=== PATIENT | female | born 1970 ===

== ENCOUNTER 2020-10-26 05:45 | Day surgery (SDC) | payer OTHER ==
[~2020-10-26 05:45] MED LIST: SYNTHROID112 MCG PO; ZIAC 2.5-6.251 EACH PO
[2020-10-26] MEDS ORDERED: IBU800 MG PO (08:22)
== END 2020-10-26 13:15 | disposition home or self-care (01) ==
LOC: CIR.AMB 05:45
PROVIDERS: ATTEND Obstetrics & Gynecology Gynecology
DX: N84.0 Polyp of corpus uteri (principal); Z20.822 Contact with and (suspected) exposure to COVID-19

== ENCOUNTER 2021-03-18 10:45 | Inpatient (IN) | payer OTHER ==
[~2021-03-18] VITALS: Ht 157.5 cm; Wt 72.6 kg
[~2021-03-18 10:45] MED LIST changes: +IBU800 MG PO
[2021-03-18] MEDS ORDERED: GLUMETZA500 MG (12:41)
[2021-03-18] MEDS ORDERED: MEGESTROL ACETA20 MG (12:42)
[2021-03-23] MEDS ORDERED: MEDROXYPRO150 MG/11 (08:13)
[2021-03-24] MEDS ORDERED: PERCOCET 5-3251 EACH PO (07:50)
[2021-03-24] MEDS ORDERED: IBUPROFEN800 MG PO (07:50)
== END 2021-03-24 08:57 | disposition home or self-care (01) | DRG 743 ==
LOC: O/R 03-22 09:30 → OB/GYN 03-22 10:45
PROVIDERS: ADMIT Obstetrics & Gynecology Gynecology; ATTEND Obstetrics & Gynecology Gynecology
PROC: 0UT70ZZ Resection of Bilateral Fallopian Tubes, Open Approach (ICD-10-PCS; 2021-03-22)
PROC: 0UT90ZZ Resection of Uterus, Open Approach (ICD-10-PCS; principal; 2021-03-22 14:30)
DX: D25.1 Intramural leiomyoma of uterus (principal); N72 Inflammatory disease of cervix uteri; N80.0 Endometriosis of uterus; D28.2 Benign neoplasm of uterine tubes and ligaments; N92.1 Excessive and frequent menstruation with irregular cycle; D25.0 Submucous leiomyoma of uterus; I10 Essential (primary) hypertension; E11.9 Type 2 diabetes mellitus without complications; E03.9 Hypothyroidism, unspecified